=== PATIENT | female | born 1955 | race Caucasian/White ===

== ENCOUNTER → 2017-10-05 | Outpatient (CLI) | payer OTHER ==
[~2017-10-05] MED LIST: GLIPIZIDE5 GM PO; GLIPIZIDE5 MG PO; JANUMET 50-5001 EACH PO; LEVAQUIN500 MG PO; LISINOPRIL10 MG PO; NORCO 10-325 T1 EACH PO; PREVACID30 MG PO; PYRIDIUM200 MG PO
--- NOTE | 2017-10-05 12:02 | Diagnostic Imaging Report ---
EXAM: Abdomen 1 Views INDICATION: Abdominal pain follow up stones COMPARISON: None available FINDINGS: Moderate amount of stool in the colon. No dilated loops of small bowel. Two 1 to 2 mm stones in lower pole of the left kidney. Rectal quadrant cholecystectomy clips No abnormal soft tissue masses. Mild degenerative changes in the lumbar spine and pelvis. IMPRESSION: Two 1 to 2 mm stones in lower pole of the left kidney. Signed by: Dr. Ish Quiroz M.D. on 10/05/2017 11:58 AM
== END ==
LOC: RAD 10:00
PROVIDERS: ATTEND Urology
DX: N20.0 Calculus of kidney (principal)
CPT/HCPCS: 74018

== ENCOUNTER → 2018-02-03 | Outpatient (CLI) | payer OTHER ==
--- NOTE | 2018-02-03 17:40 | Diagnostic Imaging Report ---
PROCEDURE:X-RAY ABDOMEN - KUB COMPARISON:KUB dated 10/05/17 INDICATIONS:PAIN LEFT FLANK; DX KIDNEY STONES FINDINGS: Limited by body habitus. The bowel gas pattern is non-obstructive. No evidence of pneumoperitoneum. 4 mm calcification overlying left renal inferior pole shadow. Right upper quadrant surgical clips, likely related to cholecystectomy. No acute osseous abnormality. CONCLUSION: 4 mm nonobstructing left renal calculus. No definite evidence of right nephrolithiasis. Nonobstructive bowel gas pattern. Dictated by: Jignesh Calero M.D. on 02/03/2018 at 17:43 Electronically approved by: Jignesh Calero M.D. on 02/03/2018 at 17:43
== END ==
LOC: RAD 16:42
PROVIDERS: ATTEND Urology
DX: N20.0 Calculus of kidney (principal)
CPT/HCPCS: 74018

== ENCOUNTER → 2018-04-15 | Outpatient (CLI) | payer OTHER ==
--- NOTE | 2018-04-15 16:28 | Diagnostic Imaging Report ---
Exam: Abdominal film Clinical History: Calculus of kidney Comparison: October 05, 2017 DISCUSSION: Frontal view of the abdomen shows a nonobstructive bowel gas pattern with moderate amount of retained stool. No dilated, air-filled loops of bowel. Evaluation for stones limited due to the presence of stool. Probable 3 mm calculus overlying the inferior pole left kidney. No acute bone abnormality. IMPRESSION: Probable 3 mm calculus overlying the inferior pole left kidney. Appears stable. Signed by: Dr. Richie Hylton M.D. on 04/15/2018 4:25 PM
== END ==
LOC: RAD 15:00
PROVIDERS: ATTEND Urology
DX: N20.0 Calculus of kidney (principal)
CPT/HCPCS: 74018

== ENCOUNTER → 2019-11-16 | Outpatient (CLI) | payer OTHER ==
--- NOTE | 2019-11-16 12:34 | Diagnostic Imaging Report ---
Exam: KUB - 2 views Indication: Renal calculus Comparison: KUB of 10/05/2017 Findings: No radiographically apparent renal calculus. Nonobstructive bowel gas pattern. No free air. Status post cholecystectomy. Phleboliths in the pelvis. No acute osseous injury. Impression: No radiographically apparent renal calculi. Signed by: Ming Boone MD on 11/16/2019 12:31 PM
== END ==
LOC: RAD 11:41
PROVIDERS: ATTEND Urology
DX: N20.0 Calculus of kidney (principal)
CPT/HCPCS: 74018